=== PATIENT | male | born 1995 | race Caucasian/White ===

== ENCOUNTER 2017-07-03 00:38 | Emergency (ER) | payer SELFPAY ==
[~2017-07-03] VITALS: Ht 180.3 cm; Wt 81.1 kg
[2017-07-03 00:45] VITALS: TEMP 37.2; Ht 180.3 cm; Wt 81.1 kg
[2017-07-03 01:44] LABS: HEMATOCRIT 44.4 % (42-52); MEAN CELL VOLUME 91.4 fL (80-100); MEAN CORPUSCULAR HEMOGLOBIN 31.7 pg (25-34); MEAN CORPUSCULAR HGB CONC 34.7 g/dl (32-36); MEAN PLATELET VOLUME 9.3 fL (7.4-10.4); PLATELET COUNT 350 K/uL (130-400); RED BLOOD COUNT 4.86 M/uL (4.7-6.1); WHITE BLOOD COUNT 9.25 K/uL (4.8-10.8)
[2017-07-03 02:03] LABS: BUN/CREATININE RATIO 12.1 (10-20); CALCIUM 8.8 mg/dl (8.5-10.1); CREATININE 0.93 mg/dl (0.60-1.40); POTASSIUM 3.7 mmol/L (3.5-5.1)
[2017-07-03] MEDS ORDERED: IBUPROFEN 600 MG TAB PO STA (02:27)
[2017-07-03] MEDS ORDERED: KETOROLAC TROMETHAMINE 30 MG/ML VIAL IV STA (02:40)
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
[2017-07-03 03:22] VITALS: BP 148/83; PULSE 99; O2SAT 94
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
== END 2017-07-03 03:23 | disposition home or self-care (01) ==
LOC: EDBD 00:38 → C.EDA 00:39
DX: S82.401A Unspecified fracture of shaft of right fibula, initial encounter for closed fracture (principal); S60.551A Superficial foreign body of right hand, initial encounter; W45.8XXA Other foreign body or object entering through skin, initial encounter; Y93.89 Activity, other specified; Y04.0XXA Assault by unarmed brawl or fight, initial encounter; Y92.89 Other specified places as the place of occurrence of the external cause; F10.120 Alcohol abuse with intoxication, uncomplicated; Y90.8 Blood alcohol level of 240 mg/100 ml or more